=== PATIENT | male | born 1955 | race Caucasian/White ===

== ENCOUNTER 2024-11-04 12:58 | Inpatient (IN) | payer MEDICARE, SELFPAY ==
[2024-11-01 19:32] VITALS: BP 198/95
--- NOTE | 2024-11-01 19:34 | ED.GENMED ---
ED Provider Triage
<Suzanne Alfaro PA-C - Last Filed: 11/01/24 19:37>
-
Patient seen by provider in Triage?: Seen in Triage
Attestation: A medical screening examination has been initiated by a qualified medical provider. Based on the assessment performed at this time, it has been determined that an emergent medical condition may exist and the patient has been informed
that further medical evaluation and possible additional diagnostic testing may be needed.
HPI: 69yoM here for memory issues x 3 weeks. Trouble remembering how to button his shirt. Went to urgent care because son thought he had a UTI. UA had glucose in it. BP also high at urgent care. No known medical problems, hasn't seen a PCP in
several years. Denies headache, chest pain, SOB.
GENERAL: Alert , in no apparent distress
EYE: No visual abnormalities.
NECK: Trachea midline
ENT: No visible abnormalities.
LUNGS: No acute respiratory distress
NEUROLOGICAL: Alert and oriented
SKIN: Skin intact. No visible changes.
MUSCULOSKELETAL: Moving extremities normally
PSYCH: Normal and appropriate interaction.
This is a medical evaluation conducted in person to initiate diagnostic evaluation and provide initial therapeutics. Please see further documentation by the treating clinician.
Cardiac labs, TSH, UA, and CT head ordered.
History of Present Illness
<Suzanne Alfaro PA-C - Last Filed: 11/01/24 19:37>
General
Chief Complaint: Change in Mental Status
Time Seen by Provider: 11/02/24 04:34
<Wilbert Brown MD, Resident - Last Filed: 11/02/24 07:03>
General
Source: patient and family
Nursing documentation reviewed up to this point in time: agreed with
Travel History
Have you traveled to any high risk areas for coronavirus over the past 14 days?: No
Have you had any contact with someone who has COVID-19?: No
Do you have any symptoms of coronavirus? Fever > 100 degrees, chills, cough, shortness of breath, sore throat, loss of taste or smell, muscle aches, or headache?: No
History of Present Illness
History of Present Illness:
This is a 69-year-old male with past medical history of uncontrolled hypertension who came to the emergency department with his son due to changes in mental status. His son reports that patient started becoming forgetful about 3 weeks ago which has
worsened. Patient's son took him to an urgent care earlier yesterday due to concerns that his mental status change was due to UTI. While in the urgent care patient was found to have an elevated blood pressure and blood sugar and was asked to go to
the ED for further evaluation and management. He has not seen a physician in 2 years. He reports no chest pain or shortness of breath, nausea, vomiting, diarrhea, constipation, fever or chills.
Past History
<Wilbert Brown MD, Resident - Last Filed: 11/02/24 07:03>
Past History
ED Past Medical History: None
ED Past Surgical History: None
Patient has exhibited threatening behavior?: No
Social History
Tobacco: Vaping
Alcohol: Daily
Drug: Marijuana
Living: alone
Family History
Family History: Diabetes and Hypertension
Review of Systems
<Wilbert Brown MD, Resident - Last Filed: 11/02/24 07:03>
Review of Systems
All Other Systems: ROS reviewed and negative except as documented in HPI and ROS
Phy Exam
<Wilbert Brown MD, Resident - Last Filed: 11/02/24 07:03>
Physical Exam
Physical Exam:
GENERAL: Alert and oriented x 3, NAD. Afebrile
HEAD: NC/AT
OROPHARYNX: no exudate or ulcers.
EYE: pupils equal and reactive extraocular muscles
NECK: Supple, no significant adenopathy.
CARDIAC: Regular rate and rhythm without any obvious murmurs.
LUNGS: Normal breath sounds,normal-no rhonchi. Not bronchospastic.
ABDOMEN: Soft, NT, ND, no peritoneal signs.
NEUROLOGICAL: Alert and oriented x 3. No focal neurological deficit.
SKIN: Warm and dry, no rash or lesion, no discoloration, skin intact.
MUSCULOSKELETAL: Full range of motion of extremities.
LYMPHATIC:No lymph nodes on his neck or supraclavicular area.
PSYCH: Normal and appropriate interaction.
Cardiovascular Exam
Cardiovascular Exam: regular rate/rhythm, no edema, no gallop and no murmur
Pulmonary Exam
Pulmonary Exam: lungs clear, no respiratory distress and no crackles
NIH Stroke Score
Level of Consciousness: 0 - Alert
LOC questions: 0-Answers both correctly
LOC Commands: 0-Performs both correctly
Best Gaze: 0-Normal
Visual Campbell: 0=Normal, no visual loss
Facial palsy: 0=Normal, symmetrical
Motor - Right Arm: 0=No drift 10 seconds
Motor - Left Arm: 0=No drift 10 seconds
Motor - Right Le-No drift 5 seconds
Motor - Left Le-No drift 5 seconds
Limb Ataxia: 0-Absent
Sensation: 0-Normal
Best Language: 0-No aphasia
Dysarthria: 0-Normal
Extinction and Inattention: 0-No abnormality
Total Score:: 0
<Sonya Donahue DO - Last Filed: 11/02/24 08:27>
NIH Stroke Score
Total Score:: 0
Course
<Suzanne Alfaro PA-C - Last Filed: 11/01/24 19:37>
Orders/Labs/Results
Orders:
Orders
11/01/24 19:36
Electrocardiogram (*1) Urgent
Reason for Study: Hypertension, Benign
CT Head W/o Iv Contrast Urgent
Comment:
Reason For Exam: AMS
EKG- Treatment ONCE
11/01/24 19:52
Complete Blood Count/With Diff Urgent
Comprehensive Metabolic Panel Urgent
Free T4 Urgent
TSH Reflex To Free T4 Urgent
Troponin I Urgent
11/01/24 23:51
Urinalysis Reflex To Culture Urgent
Date Specimen was Collected: 11/01/24
Time Specimen was Collected: 23:45
Urine Microscopic Reflex Cult Urgent
11/02/24 05:19
Electrocardiogram (*1) Urgent
Reason for Study: Hypertension, Benign
EKG- Treatment ONCE
11/02/24 05:56
Enalapril [Vasotec] 10 mg PO NOW STA
11/02/24 07:47
Admit/Transfer Patient As Directed
Co-Sign Provider:
Level of Care: Observation services
Assign to:: Telemetry
Physician / Group: hospitalist
Diagnosis: uncontrolled hypertension, subacute stroke
Reason for Telemetry: CVA/TIA
Date to Stop Telemetry: 11/05/24
Time to Stop Telemetry: 11:00
PRN Pain Medication Management As Directed
May give lesser potent ordered pain med per pt: Yes
preference::
Protocol:: Medication orders for pain may be administered in a
manner that supports deferring to patient preference
when the pt is:
- Requesting an ordered lesser potent pain medication.
Least to most potent pain medications are defined
as: acetaminophen < NSAID < tramadol < opioids
(morphine, oxycodone, hydromorphone).
- Requesting a lesser dose of the same medication IF
ORDERED.
- Requesting a less intrusive route of administration
if both routes are prescribed by the provider (PO <
IV).
11/02/24 07:48
Code Status As Directed
Resuscitation Status: Full Code
11/02/24 08:05
Alcohol Stat
BMP [Basic Metabolic Panel] Stat
Cardiovascular Evaluation Stat
ESR [Erythrocyte Sed Rate] Stat
Hemoglobin A1c [Glycohemoglobin (HgbA1c)] Stat
LFT [Gdlqc-Bqhc-Bzjhrev] Stat
11/05/24 11:00
DC Protocol for Telemetry ONCE
Abnormal Lab Results
11/01/24 11/01/24
19:52 23:51
RBC 4.63 L 10^6/uL
(4.70-6.10)
MCH 32.6 H pg
(27.0-31.0)
Glucose 228 H mg/dl
(70-99)
TSH (Reflex) 5.12 H uIU/ml
(0.47-4.68)
Urine Ketones 1+ A
(Negative)
Urine Bacteria (Reflex) Few A
(Negative)
Urine Glucose 3+ A
(Negative)
Urine Albumin (Reflex) 2+ A
(Neg - Trace)
11/01/24 19:52
Vital Signs
Initial and Last Documented VS:
Initial Vital Signs
Temp Pulse Resp BP Pulse Ox
98.7 F 81 20 198/95 98
11/01/24 19:32 11/01/24 19:32 11/01/24 19:32 11/01/24 19:32 11/01/24 19:32
Last Documented Vital Signs
Temp Pulse Resp BP Pulse Ox
98.7 F 72 14 198/102 99
11/01/24 19:32 11/02/24 07:18 11/02/24 07:18 11/02/24 06:52 11/02/24 03:47
<Wilbert Mina Brown MD, Resident - Last Filed: 11/02/24 07:03>
Orders/Labs/Results
Orders:
Orders
11/01/24 19:36
Electrocardiogram (*1) Urgent
Reason for Study: Hypertension, Benign
CT Head W/o Iv Contrast Urgent
Comment:
Reason For Exam: AMS
EKG- Treatment ONCE
11/01/24 19:52
Complete Blood Count/With Diff Urgent
Comprehensive Metabolic Panel Urgent
Free T4 Urgent
TSH Reflex To Free T4 Urgent
Troponin I Urgent
11/01/24 23:51
Urinalysis Reflex To Culture Urgent
Date Specimen was Collected: 11/01/24
Time Specimen was Collected: 23:45
Urine Microscopic Reflex Cult Urgent
11/02/24 05:19
Electrocardiogram (*1) Urgent
Reason for Study: Hypertension, Benign
EKG- Treatment ONCE
11/02/24 05:56
Enalapril [Vasotec] 10 mg PO NOW STA
11/02/24 07:47
Admit/Transfer Patient As Directed
Co-Sign Provider:
Level of Care: Observation services
Assign to:: Telemetry
Physician / Group: hospitalist
Diagnosis: uncontrolled hypertension, subacute stroke
Reason for Telemetry: CVA/TIA
Date to Stop Telemetry: 11/05/24
Time to Stop Telemetry: 11:00
PRN Pain Medication Management As Directed
May give lesser potent ordered pain med per pt: Yes
preference::
Protocol:: Medication orders for pain may be administered in a
manner that supports deferring to patient preference
when the pt is:
- Requesting an ordered lesser potent pain medication.
Least to most potent pain medications are defined
as: acetaminophen < NSAID < tramadol < opioids
(morphine, oxycodone, hydromorphone).
- Requesting a lesser dose of the same medication IF
ORDERED.
- Requesting a less intrusive route of administration
if both routes are prescribed by the provider (PO <
IV).
11/02/24 07:48
Code Status As Directed
Resuscitation Status: Full Code
11/02/24 08:05
Alcohol Stat
BMP [Basic Metabolic Panel] Stat
Cardiovascular Evaluation Stat
ESR [Erythrocyte Sed Rate] Stat
Hemoglobin A1c [Glycohemoglobin (HgbA1c)] Stat
LFT [Djgjn-Wbbs-Zxmiaph] Stat
11/05/24 11:00
DC Protocol for Telemetry ONCE
Abnormal Lab Results
11/01/24 11/01/24
19:52 23:51
RBC 4.63 L 10^6/uL
(4.70-6.10)
MCH 32.6 H pg
(27.0-31.0)
Glucose 228 H mg/dl
(70-99)
TSH (Reflex) 5.12 H uIU/ml
(0.47-4.68)
Urine Ketones 1+ A
(Negative)
Urine Bacteria (Reflex) Few A
(Negative)
Urine Glucose 3+ A
(Negative)
Urine Albumin (Reflex) 2+ A
(Neg - Trace)
11/01/24 19:52
Vital Signs
Initial and Last Documented VS:
Initial Vital Signs
Temp Pulse Resp BP Pulse Ox
98.7 F 81 20 198/95 98
11/01/24 19:32 11/01/24 19:32 11/01/24 19:32 11/01/24 19:32 11/01/24 19:32
Last Documented Vital Signs
Temp Pulse Resp BP Pulse Ox
98.7 F 72 14 198/102 99
11/01/24 19:32 11/02/24 07:18 11/02/24 07:18 11/02/24 06:52 11/02/24 03:47
<Sonya Donahue, DO - Last Filed: 11/02/24 08:27>
Orders/Labs/Results
Orders:
Orders
11/01/24 19:36
Electrocardiogram (*1) Urgent
Reason for Study: Hypertension, Benign
CT Head W/o Iv Contrast Urgent
Comment:
Reason For Exam: AMS
EKG- Treatment ONCE
11/01/24 19:52
Complete Blood Count/With Diff Urgent
Comprehensive Metabolic Panel Urgent
Free T4 Urgent
TSH Reflex To Free T4 Urgent
Troponin I Urgent
11/01/24 23:51
Urinalysis Reflex To Culture Urgent
Date Specimen was Collected: 11/01/24
Time Specimen was Collected: 23:45
Urine Microscopic Reflex Cult Urgent
11/02/24 05:19
Electrocardiogram (*1) Urgent
Reason for Study: Hypertension, Benign
EKG- Treatment ONCE
11/02/24 05:56
Enalapril [Vasotec] 10 mg PO NOW STA
11/02/24 07:47
Admit/Transfer Patient As Directed
Co-Sign Provider:
Level of Care: Observation services
Assign to:: Telemetry
Physician / Group: hospitalist
Diagnosis: uncontrolled hypertension, subacute stroke
Reason for Telemetry: CVA/TIA
Date to Stop Telemetry: 11/05/24
Time to Stop Telemetry: 11:00
PRN Pain Medication Management As Directed
May give lesser potent ordered pain med per pt: Yes
preference::
Protocol:: Medication orders for pain may be administered in a
manner that supports deferring to patient preference
when the pt is:
- Requesting an ordered lesser potent pain medication.
Least to most potent pain medications are defined
as: acetaminophen < NSAID < tramadol < opioids
(morphine, oxycodone, hydromorphone).
- Requesting a lesser dose of the same medication IF
ORDERED.
- Requesting a less intrusive route of administration
if both routes are prescribed by the provider (PO <
IV).
11/02/24 07:48
Code Status As Directed
Resuscitation Status: Full Code
11/02/24 08:05
Alcohol Stat
BMP [Basic Metabolic Panel] Stat
Cardiovascular Evaluation Stat
ESR [Erythrocyte Sed Rate] Stat
Hemoglobin A1c [Glycohemoglobin (HgbA1c)] Stat
LFT [Wysdf-Opoa-Lbxxrhm] Stat
11/05/24 11:00
DC Protocol for Telemetry ONCE
Abnormal Lab Results
11/01/24 11/01/24
19:52 23:51
RBC 4.63 L 10^6/uL
(4.70-6.10)
MCH 32.6 H pg
(27.0-31.0)
Glucose 228 H mg/dl
(70-99)
TSH (Reflex) 5.12 H uIU/ml
(0.47-4.68)
Urine Ketones 1+ A
(Negative)
Urine Bacteria (Reflex) Few A
(Negative)
Urine Glucose 3+ A
(Negative)
Urine Albumin (Reflex) 2+ A
(Neg - Trace)
11/01/24 19:52
Vital Signs
Initial and Last Documented VS:
Initial Vital Signs
Temp Pulse Resp BP Pulse Ox
98.7 F 81 20 198/95 98
11/01/24 19:32 11/01/24 19:32 11/01/24 19:32 11/01/24 19:32 11/01/24 19:32
Last Documented Vital Signs
Temp Pulse Resp BP Pulse Ox
98.7 F 72 14 198/102 99
11/01/24 19:32 11/02/24 07:18 11/02/24 07:18 11/02/24 06:52 11/02/24 03:47
<Wilbert Bronw MD, Resident - Last Filed: 11/02/24 07:03>
MDM/Problems Addressed
MDM/Problems Addressed:
69-year-old male who has not been to the doctor for in 2 years coming into the emergency department today with memory loss, high blood pressure and impaired glucose tolerance dictated at an urgent care. A noncontrast CT done in the ED today
remarkable for inferolateral right parietal lobe wedge-shaped area of density suspicious for subacute infarcts and a small white matter decreased density in right frontal suspicious for leukomalacia/small vessel ischemic changes. His blood glucose
was mildly elevated at 228, TSH 5.12 with normal T4 (1.26). Urinalysis was also positive for ketones, glucose and albumin.
Differential diagnosis include acute metabolic disorders with poorly controlled diabetes mellitus and resultant subacute CVA, acute psychiatric disorders, acute [employer] infection.
Chronic conditions affecting care: HTN
<Wilbert Brown MD, Resident - Last Filed: 11/02/24 07:03>
*Critical Care Note
Total Time (30-74mins, 75-104mins- exclusive of procedures): Not Applicable
<Wilbert Brown MD, Resident - Last Filed: 11/02/24 07:03>
Update Note
Update Note:
CT scan was positive for subacute stroke right parietal lobe. There is also concerns for uncontrolled hypertension, undiagnosed diabetes and most likely underlying hyperlipidemia and CAD making patient susceptible to recurrent stroke and
significant mobility and mortality risk.
Given his recent confusion, hypertension, stroke, will admit patient to hospitalist service for further evaluation and management.
ED Attending Note
<Suzanne Alfaro PA-C - Last Filed: 11/01/24 19:37>
-
Portions of this chart may have been created with voice recognition software.� Occasional wrong word or��sound alike� substitutions may have occurred due to the inherent limitations of voice recognition software.
<Sonya Donahue, DO - Last Filed: 11/02/24 08:27>
ED Attending Note
Patient seen and examined by attending physician: Yes
I performed a history and physical exam of patient and discussed management with resident, I reviewed resident's note and agree with documented findings and plan of care.: Yes
ED Attending Note:
This is a 69-year-old gentleman who resides at home with his son. He is brought to the ED by his son with concern for several month history of memory issues, forgetfulness. He has had no weakness nor numbness, no headache, no chest pain or
shortness of breath. No falls.
Initially presented to urgent care and was noted to have significantly elevated blood pressure and was sent to the ER for further evaluation.
Patient admits to neglecting his own health care, has not been seen by PCP in quite some time, at least more than 2 years.
He takes no medicines on a daily basis.
He smokes marijuana. Denies other drug use.
He drinks wine perhaps 3 to 4 glasses, 3-4 times per week.
69-year-old gentleman appears his stated age, bright and alert, pleasant, appears in no acute distress. Easily communicative. Oriented x 3.
Heart is regular rate and rhythm.
Lungs are clear to auscultation.
Neuro: Awake alert and oriented x 3. No focal neurodeficits. Motor strength is 5/5 bilaterally. Gross sensation is intact.
Noted to be significantly hypertensive, 198/95, 180/90 upon recheck.
Labs are remarkable for elevated glucose of 228 without acidosis.
TSH is minimally elevated at 5.12 with normal free T4.
Troponin is negative.
CAT scan shows subacute stroke right parietal lobe.
I highly suspect poorly controlled hypertension, diabetes as significant risk factors for ASCVD. Must also consider hyperlipidemia, carotid artery disease.
Patient is at significant risk for recurrent stroke, severe debility.
Recommend acute hospitalization for treatment of accelerated hypertension, diabetes and subacute stroke.
Will check EKG and we will plan to initiate antihypertensive.
Will start low-dose aspirin.
Discharge Plan
Departure
Patient Disposition: Admit
Date of Disposition: 11/02/24
Time of Disposition: 06:57
Admit to: Telemetry
Admit to doctor: Amrit Escoto
Presentation/result/management discussed w/ accepting MD/DO: Hospitalist
Patient with high blood pressure during this ER visit?: Yes
Condition: Serious
Covid-19: Not Applicable
Discharge Problem:
Essential hypertension, Glucose intolerance (impaired glucose tolerance), Acute confusion
Interventions
Interventions:
*Risk Screen - Suicide Last Done: 11/01/24 19:32
*General Assessment Last Done: 11/02/24 00:00
*Neglect/Abuse Screening Last Done: 11/01/24 19:32
ED- Fall Risk Assessment Last Done: 11/01/24 19:32
*ED COVID-19 Vaccine History Last Done: 11/01/24 19:32
ED- Cardiac Assessment Last Done: 11/02/24 03:20
ED- Neurological Assessment Last Done: 11/02/24 03:20
ED- Pulmonary Assessment Last Done: 11/02/24 03:20
ED Swallowing Screen Last Done: 11/02/24 03:20
[2024-11-01 20:01] LABS: % Basophils 0.7 % (0-2); % Eosinophils 2.7 % (0-6); % Immature Granulocytes 0.3 % (0-0.5); % Lymphocytes 31.8 % (20.5-51.1); % Neutrophils 56.5 % (42.2-75.2); Absolute Eosinophils 0.2 10^3/uL (0-0.7); Absolute Lymphocytes 1.9 10^3/uL (1.2-3.4); Absolute Monocytes 0.5 10^3/uL (0.1-0.6); Absolute Neutrophils 3.3 10^3/uL (1.4-6.5); Hematocrit 41.7 % (39.0-52.0); Hemoglobin 15.1 g/dL (13.0-18.0); Mean Corp Hgb Conc. 36.2 g/dL (33.0-37.0); Mean Corpuscular Hgb 32.6 pg (27.0-31.0); Mean Corpuscular Volume 90.1 fL (80.0-94.0); Mean Platelet Volume 9.4 fL (7.4-10.4); Nucleated Red Blood Cells % 0 % (-); Platelet Count 179 10^3/uL (130-400); Red Blood Cell Count 4.63 10^6/uL (4.70-6.10); Red Cell Dist. Width 11.8 % (11.5-14.5); White Blood Cell Count 5.8 10^3/uL (4.8-10.8)
[2024-11-01 20:19] LABS: ALT (SGPT) 37 U/L (0-50); AST (SGOT) 31 U/L (17-59); Albumin 4.9 g/dl (3.5-5.0); Alkaline Phosphatase 56 U/L (38-126); Blood Urea Nitrogen 16 mg/dl (9-20); Calcium 9.1 mg/dl (8.4-10.2); Carbon Dioxide 27 mmol/L (22-30); Chloride 98 mmol/L (98-107); Glucose 228 mg/dl (70-99); Potassium 3.9 mmol/L (3.5-5.1); Sodium 135 mmol/L (135-145); Total Bilirubin 0.9 mg/dl (0.2-1.3); Total Protein 7.9 g/dl (6.3-8.2); eGFR > 60.00
[2024-11-01 20:24] LABS: Troponin I < 0.012 ng/ml
[2024-11-01 20:49] LABS: TSH Reflex To Free T4 5.12 uIU/ml (0.47-4.68)
[2024-11-01 21:18] LABS: Free T4 1.26 ng/dl (0.78-2.19)
[2024-11-02] VITALS (15 sets, daily range): BP systolic 131–198; BP diastolic 74–117; BMI 30.9
[2024-11-02 00:13] LABS: Urine Albumin 2+ (Neg - Trace); Urine Bilirubin Negative (Negative); Urine Character Clear (Clear); Urine Color Yellow; Urine Glucose 3+ (Negative); Urine Ketone 1+ (Negative); Urine Leukocyte Negative (Negative); Urine Nitrite Negative (Negative); Urine Occult Blood Negative (Negative); Urine Urobilinogen 1+ (Neg - 1+)
[2024-11-02 01:16] LABS: Urine Mucus Moderate
[2024-11-02 01:19] LABS: Urine Bacteria Few (Negative); Urine Calcium Oxalate Crystals Seen; Urine Red Blood Cell 0-2 /HPF (0-2); Urine White Cell 0-2 /HPF (0-5)
[2024-11-02] MEDS: VASOTEC 10 MG PO (06:10)
--- NOTE | 2024-11-02 07:34 | HPS.HSE ---
Family Physician
-
Family Physician: NOT KNOW UNKNOWN - PT DOES
Chief Complaint
-
Subacute memory loss and confusion, uncontrolled blood pressure
History of Present Illness
This is a 69-year-old who has no known significant past medical history due to loss of follow-up presents to the emergency department after being seen at urgent care for uncontrolled hypertension and memory difficulties.
According to patient as well as family appear to have been in usual state of health up until about 3 weeks ago. At that time they noticed that he had increased forgetfulness. He was unable to remember where he put his keys or wallet. He he was
unable to remember how to put on his shirt and pants. He gradually improved since then but never back to baseline. The family saw him afterwards and sent him to urgent care. At urgent care and was noted to be severely hypertensive. He also
appeared to have some abnormality in the urine they were concern for urinary tract infection at that time. Due to the uncontrolled blood pressure was sent to the emergency department for evaluation.
He denies any focal weakness. He denies any difficulty with speech. He denies any facial asymmetry. He denies any ambulatory difficulties. He denies any vision changes.
Patient denies ever being on any medications including antihypertensives. He denies any known history of diabetes. Denies family history of diabetes. He endorsed drinking about 4 glasses of wine 4-5 times a week. He denies tobacco use. He
endorses marijuana use. He denies any NSAID use.
On arrival in the emergency department he was hypertensive to 190 systolic, pulse was in the 60s and he was satting 98% on room air. ECG showed some normal sinus rhythm at 62. Troponin was negative. CBC was unremarkable. Electrolytes BUN and
creatinine were normal. Glucose was elevated at 228. CT of the head shows wedge-shaped infarcts in the inferior lateral right parietal region consistent with a subacute infarct. There was some small vessel changes as well. UA with 2+ protein but
otherwise unremarkable
Medical History
Past Medical History
Past Medical History: Reports None and HTN
Past Surgical History: Reports None
Social History
Tobacco: Non-smoker
Alcohol: Daily
Drug: Marijuana
Personal: Single
Living: Alone
Employment: Retired
Family History
Family History: Not pertinent
Allergies / Home Medications
Allergies reflects when Allergies were last updated in [facility].
Home Medications with original date entered in [facility]
Allergy/Medication List:
Allergies
Allergy/AdvReac Type Severity Reaction Status Date / Time
No Known Allergies Allergy Verified 11/01/24 19:40
NO MEDICATIONS
Review of Systems
-
History Source: Patient and Family
Constitutional: Reports No Symptoms
EENT: Reports No Symptoms
Respiratory: Reports No Symptoms
Cardiac: Reports No Symptoms
Abdomen/GI: Reports No Symptoms
: Reports No Symptoms
Musculoskeletal: Reports No Symptoms
Skin: Reports No Symptoms
Neurological: Reports Other (memory loss)
Endocrine: Reports No Symptoms
Hematologic/Lymphatic: Reports No Symptoms
Psych: Reports No Symptoms
Physical Exam
Vital Signs
Vital Signs
Temp Pulse Resp BP Pulse Ox
98.7 F 72 14 198/102 99
11/01/24 19:32 11/02/24 07:18 11/02/24 07:18 11/02/24 06:52 11/02/24 03:47
Physical Exam
General: Well Developed, No Apparent Distress, Comfortable and Conversant
HEENT: NormoCephalic, Anicteric, Moist mucous membranes and Atraumatic
Respiratory: Clear
Cardiac: S1/S2 and Regular Rhythm
Breast: Deferred by me
GI: Soft, Non Tender, Non Distended and Normal Bowel Sounds
Rectal: Deferred by Provider
Genito-urinary: Deferred by me
Musculoskeletal: No Clubbing, No Cyanosis and No Edema
Skin: Warm
Neuro: AO x 3, Nonfocal/grossly intact and Cranial Nerves Intact; No Slurred Speech or Facial Droop
Hematologic/Lymphatic: No Lymphadenopathy
Psych: Calm
Laboratory Results
-
11/01/24 19:52
11/01/24 19:
Laboratory Results
Total Bilirubin 0.9 mg/dl (0.2-1.3) 11/01/24 19:52
AST 31 U/L (17-59) 11/01/24 19:52
ALT 37 U/L (0-50) 11/01/24 19:52
Alkaline Phosphatase 56 U/L (38-126) 11/01/24 19:52
Troponin I < 0.012 ng/ml 11/01/24 19:52
Data Reviewed
-
CT Scan: Report Reviewed by me
Medical Tests (Nuc Med, Echo, EKG etc): Image Personally Visualized and interpreted
Lab Data: Labs Reviewed by me
Old Records: Reviewed
Impression/Plan
-
IMPRESSION:
69 y.o with unknown history of uncontrolled hypertension presenting with episode of memory loss that occurred about 3 weeks ago and found to have a R parietal subacute ischemic infarct.
PLAN:
1. CVA - Subacute CVA, no known past medical history.
- admit to telemetry observe x 24 hours for rhythm
- no indication for neurochecks at this time
- cholesterol diet as tolerated
- mri brain, mra head and neck
- echo
- check lipid panel, a1c, lfts, esr. TSH WNL.
- start aspirin 81 daily, statin
- plavix per neurology consult
- BP control as below
2. HTN
- no prior antihypertensive, good response to enalapril
- continue enalapril 10mg daily and titrate for goal SBP < 160, DBP < 90
3. DM - ? dm 2. Denies polyuria or polydipsia
- a1c as above
4. ETOH - drinks 4 glasses of wine 4 times per week. Additionally has liquor occasionally. Has stopped without issues in the past. Last drink 48 hours ago.
- check etoh
- check lfts
- no indication for acute withdrawal protocol but will monitor on telemetry
DVT PPX - SCDs
Code status - Full code
[2024-11-02 08:29] LABS: Erythrocyte Sed Rate 11 mm/hour (0-20)
[2024-11-02 08:30] LABS: ALT (SGPT) 39 U/L (0-50); AST (SGOT) 29 U/L (17-59); Albumin 5.2 g/dl (3.5-5.0); Alkaline Phosphatase 60 U/L (38-126); Blood Urea Nitrogen 19 mg/dl (9-20); Calcium 9.2 mg/dl (8.4-10.2); Carbon Dioxide 28 mmol/L (22-30); Chloride 99 mmol/L (98-107); Direct Bilirubin 0.5 mg/dl (0.0-0.4); Glucose 235 mg/dl (70-99); HDL Cholesterol 38 mg/dl; LDL Cholesterol, Calculated 112 mg/dl; Potassium 3.8 mmol/L (3.5-5.1); Sodium 138 mmol/L (135-145); Total Cholesterol 208 mg/dl (50-199); Total Protein 8.3 g/dl (6.3-8.2); Triglyceride 293 mg/dl (10-149); Very Low Density Lipoprotein 58 mg/dl (0-30); eGFR > 60.00
--- NOTE | 2024-11-02 09:05 | CON.NEURO ---
Consultation
Order
Date of Consultation: 11/02/24
Requesting Provider: Tim Tinsley MD
Reason for Consult: Memory loss subacute CVA
Neurology Consultation Note.
HPI: This is a 69-year-old man who presented to [facility] on 11/01/2024 with encephalopathy.
The patient endorses concerns of memory loss. His son brought him to urgent care due to these concerns, where he was found to be diabetic and hypertensive. The patient acknowledges being forgetful, describing it as 'very frustrating.' He reports
misplacing personal items such as his phone, wallet, and eyeglasses for more than a week.
He has no established primary care physician but reports his son is working on arranging one. The patient admits to recreational marijuana use, which he started approximately 50 years ago. He quit smoking cigarettes about 20 years ago. He
acknowledges alcohol consumption, preferring red wine currently, with a history of hard liquor use in the past.
ER VS: 198/95, 81, afebrile
EKG: NSR, QTc Int : 444 ms
PDMP:none
Labs: Glucose�228, normal sodium, creatinine�1.3, total protein�8.3, LDL�112, normal free T4, UA�positive for glucose, albumin, ketones. Negative for leukocyte esterase, nitrates EtOH�not detected
CT head wo contrast�subacute right MCA infarct
CTA�no hemodynamically significant stenosis with dissection
PMH: No prior medical care
PSH:oral surgery
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
All:NKDA
ROS: Constitutional: Negative. Negative for chills, fever and unexpected weight change.
HENT: Negative for ear pain, hearing loss, tinnitus and trouble swallowing.
Eyes: Negative. Negative for photophobia, pain and visual disturbance.
Respiratory: Negative for cough, choking and shortness of breath.
Cardiovascular: Negative for chest pain, palpitations and leg swelling.
Gastrointestinal: Negative for abdominal pain and vomiting.
Endocrine: Negative. Negative for cold intolerance.
Genitourinary: Positive for urinary urgency
Musculoskeletal: Negative for back pain, gait problem, neck pain and neck stiffness.
Skin: Negative for rash.
Allergic/Immunologic: Negative. Negative for immunocompromised state.
Neurological: Positive for change in memory, imbalance
Psychiatric/Behavioral: Negative for behavioral problems, confusion and hallucinations.
General: Well developed. In no acute distress.
Cardio: Regular rate and rhythm without murmur. Extremities are without cyanosis or edema.
Neuro:
Mental Status: Alert, oriented to person, place, and date. Normal attention and recall. Good fund of knowledge. Follows complex requests across the midline. Comprehension, naming, and repetition intact. Immediate and delayed recall 3/3.
Cranial Nerves: Pupils are equally round and reactive to light. EOMs full. Visual barbosa full to confrontation. No ptosis. No nystagmus. V1-V3 intact to light touch and pinprick bilaterally, symmetric. Face symmetric. Normal hearing AU. The
palate elevated well. SCMs and traps 5/5. Tongue midline. No dysarthria.
Motor: Normal bulk and tone. No pronator or arm drift. Strength 5/5 throughout. No clonus.
Reflexes: 2+ throughout the upper extremities and knees. 2/2 in AJs. Plantar responses flexor bilaterally.
Sensory: Vibration at the toes and reduced at the ankles
Coordination: No dysmetria or tremor.
Gait: deferred
Assessment and Plan:
I. Subacute right MCA territory infarct. Likely etiology�embolic
II. Hypertensive emergency
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
IV. Cannabis, EtOH addiction
-Continue Telemetry monitoring
-Cautious lowering of BP by approximately 15 % during the first 24 hours is SBP >220 mmHg or diastolic blood pressure >120 mmHg
-Start DAPT for 21 days then continue aspirin 81 mg once a day indefinitely
-TTE /LIAM if TTE is unremarkable
-Polyneuropathy blood work
-Continue thiamine
-Lipitor 40 mg QHS.
-IV thiamine
-PT.
-DVT prophylaxis.
I personally reviewed all radiology and labs along with past medical records pertinent to current medical problems. Total time spent in patient care is 60 minutes.
Thank you for allowing us to participate in the care of this patient. We will continue to follow. Please do not hesitate to contact us with any questions or concerns.
Subjective/Objective
Subjective Data
Date of Service: November 02, 2024
Objective Data
Vital Signs
Temp Pulse Resp BP Pulse Ox
37.1 C 72 14 198/102 99
11/01/24 19:32 11/02/24 07:18 11/02/24 07:18 11/02/24 06:52 11/02/24 03:47
Lab Results
11/01/24 19:52
11/02/24 08:05
Sodium 138 mmol/L (135-145) 11/02/24 08:05
Potassium 3.8 mmol/L (3.5-5.1) 11/02/24 08:05
BUN 19 mg/dl (9-20) 11/02/24 08:05
Glucose 235 mg/dl (70-99) H 11/02/24 08:05
Calcium 9.2 mg/dl (8.4-10.2) 11/02/24 08:05
LDL Cholesterol, Calc 112 mg/dl 11/02/24 08:05
Patient Allergies
No Known Allergies Allergy (Verified 11/01/24 19:40)
Vital Signs and Labs
-
Vital Signs and Labs:
Vital Signs
Temp Pulse Resp BP Pulse Ox
37.1 C 84 17 174/74 80
11/01/24 19:32 11/02/24 10:01 11/02/24 10:01 11/02/24 11:06 11/02/24 11:06
Lab Results
11/01/24 19:52
11/02/24 08:05
Sodium 138 mmol/L (135-145) 11/02/24 08:05
Potassium 3.8 mmol/L (3.5-5.1) 11/02/24 08:05
BUN 19 mg/dl (9-20) 11/02/24 08:05
Glucose 235 mg/dl (70-99) H 11/02/24 08:05
Calcium 9.2 mg/dl (8.4-10.2) 11/02/24 08:05
LDL Cholesterol, Calc 112 mg/dl 11/02/24 08:05
Vitamin B12 630 pg/ml (239-931) 11/02/24 08:05
Ur Buprenorphine Cancelled 11/02/24 10:54
Medications
-
Medications:
Generic Name Dose Route Start Last Admin
Trade Name Freq PRN Reason Stop Dose Admin
Aspirin 81 mg 11/02/24 10:00 11/02/24 11:05
Aspirin 81 Mg Chewable Tablet PO 11/30/24 09:59 81 mg
DAILY BENITO Administration
Home Medications
-
Home Medications
acetaminophen 500 mg tablet 1,500 mg PO DAILYPRN PRN mild pain/migraine 11/02/24
[2024-11-02] MEDS: LOW STRENGTH ASPIRIN 81 MG PO ×2 (11:05→16:58)
[2024-11-02 11:10] LABS: Vitamin B12 630 pg/ml (239-931)
[2024-11-02] MEDS: PLAVIX 75 MG PO (15:15)
--- NOTE | 2024-11-02 15:34 | W.PN.UPDATE ---
Update Note
Progress Note Update
Hemoglobin A1c is 10, will need health educator on board
Insulin titration
Start statin
Await imaging
Neuroconsultation
Echo
DAPT
BP control
[2024-11-02] MEDS: LIPITOR 40 MG PO (16:58)
--- NOTE | 2024-11-02 16:59 | PTCARENOTE ---
Pt arrived to 2S in bed. Full assessment completed. Neuro assessment WDL. NIH score 1. No issues swallowing. Bed alarm applied for safety. Pt instructed to ring for assistance getting OOB, verbalized understanding. Bed locked and in the lowest
position, safety maintained. Oriented to room and call berny, son at bedside.
[2024-11-02 17:20] LABS: Glucose - Point of Care 190 mg/dl (70-99)
[2024-11-02 17:37] LABS: Folate 8.2 ng/ml (2.76-20)
[2024-11-02] MEDS: NOVOLOG FLEXPEN-LOW RESISTANCE 1 UNITS SC (18:00)
--- NOTE | 2024-11-02 18:00 | PTCARENOTE ---
stroke packet provided to pt per protocol
[2024-11-02 21:18] LABS: Glucose - Point of Care 170 mg/dl (70-99)
[2024-11-03] VITALS (8 sets, daily range): BP systolic 144–176; BP diastolic 77–96
[2024-11-03 08:12] LABS: Glucose - Point of Care 206 mg/dl (70-99)
--- NOTE | 2024-11-03 08:42 | W.PN.NEURO.1 ---
Today's Communication / Plan
-
.
Subjective/Objective
Subjective Data
Date of Service: November 03, 2024
Neurology neurology follow-up note.
Mr. Charlton reports no complaints. He had uneventful night. No reports of headaches change in vision or strength. Continues to be hypertensive up to 176/85 in the morning.
LDL�112, HbA1C 10.0, vitamin B12�632,
CTA�no hemodynamically significant stenosis or dissection.
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
PSH:oral surgery
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
All:NKDA
ROS: Constitutional: Negative. Negative for chills, fever and unexpected weight change.
HENT: Negative for ear pain, hearing loss, tinnitus and trouble swallowing.
Eyes: Negative. Negative for photophobia, pain and visual disturbance.
Respiratory: Negative for cough, choking and shortness of breath.
Cardiovascular: Positive for lower leg edema
Gastrointestinal: Negative for abdominal pain and vomiting.
Endocrine: Negative. Negative for cold intolerance.
Genitourinary: Positive for urinary urgency
Musculoskeletal: Negative for back pain, gait problem, neck pain and neck stiffness.
Skin: Negative for rash.
Allergic/Immunologic: Negative. Negative for immunocompromised state.
Neurological: Positive for change in memory, imbalance
Psychiatric/Behavioral: Negative for behavioral problems, confusion and hallucinations.
General: Well developed. In no acute distress.
Cardio: Regular rate and rhythm without murmur. Extremities are without cyanosis or edema.
Neuro:
Mental Status: Alert, oriented to person, place, and date. Normal attention and recall. Good fund of knowledge. Follows complex requests across the midline. Comprehension, naming, and repetition intact.
Cranial Nerves: Pupils are equally round and reactive to light. EOMs full. L>R visual fissure. Visual barbosa full to confrontation. No ptosis. No nystagmus. V1-V3 intact to light touch and pinprick bilaterally, symmetric. Face symmetric.
Full eye closure strength. Normal hearing AU. The palate elevated well. SCMs and traps 5/5. Tongue midline. Mild edentulous dysarthria
Motor: Normal bulk and tone. No pronator or arm drift. Strength 5/5 throughout. No clonus.
Sensory: absent vibration at the toes and reduced at the ankles
Coordination: No dysmetria or tremor.
Gait: deferred
Assessment and Plan:
I. 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 Likely etiology�embolic
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
III. History of recurrent Jones's palsy
IV. Cannabis, EtOH addiction
-Continue Telemetry monitoring
Strict glycemic, lipid and blood pressure control
-Continue DAPT for 21 days then continue aspirin 81 mg once a day indefinitely
-TTE /LIAM if TTE is unremarkable
-Continue thiamine
-Lipitor 40 mg QHS.
-Follow-up thiamine level, SPEP, GUNJAN
-PT.
-DVT prophylaxis.
I personally reviewed all radiology and labs along with past medical records pertinent to current medical problems. Total time spent in patient care is 40 minutes.
Thank you for allowing us to participate in the care of this patient. Please do not hesitate to contact us with any questions or concerns.
Objective Data
Vital Signs
Temp Pulse Resp BP Pulse Ox
36.3 C 59 16 176/85 98
11/03/24 07:20 11/03/24 07:20 11/03/24 07:20 11/03/24 07:20 11/03/24 07:20
Lab Results
11/01/24 19:52
11/02/24 08:05
Sodium 138 mmol/L (135-145) 11/02/24 08:05
Potassium 3.8 mmol/L (3.5-5.1) 11/02/24 08:05
BUN 19 mg/dl (9-20) 11/02/24 08:05
Glucose 235 mg/dl (70-99) H 11/02/24 08:05
Calcium 9.2 mg/dl (8.4-10.2) 11/02/24 08:05
LDL Cholesterol, Calc 112 mg/dl 11/02/24 08:05
Vitamin B12 Cancelled 11/02/24 15:52
Ur Buprenorphine Cancelled 11/02/24 10:54
Patient Allergies
No Known Allergies Allergy (Verified 11/01/24 19:40)
Vital Signs and Labs
-
Vital Signs and Labs:
Vital Signs
Temp Pulse Resp BP Pulse Ox
36.3 C 59 16 176/85 98
11/03/24 07:20 11/03/24 07:20 11/03/24 07:20 11/03/24 07:20 11/03/24 07:20
Lab Results
11/01/24 19:52
11/02/24 08:05
Sodium 138 mmol/L (135-145) 11/02/24 08:05
Potassium 3.8 mmol/L (3.5-5.1) 11/02/24 08:05
BUN 19 mg/dl (9-20) 11/02/24 08:05
Glucose 235 mg/dl (70-99) H 11/02/24 08:05
Calcium 9.2 mg/dl (8.4-10.2) 11/02/24 08:05
LDL Cholesterol, Calc 112 mg/dl 11/02/24 08:05
Vitamin B12 Cancelled 11/02/24 15:52
Ur Buprenorphine Cancelled 11/02/24 10:54
Medications
-
Medications:
Generic Name Dose Route Start Last Admin
Trade Name Freq PRN Reason Stop Dose Admin
Acetaminophen 650 mg 11/02/24 15:40
Acetaminophen 650 Mg Rectal Suppository RECTAL 11/30/24 15:39
Q4HPRN PRN
HANCOCK, mild pain, or temp >100.4F
Acetaminophen 650 mg 11/02/24 15:40
Acetaminophen 325 Mg Tablet PO 11/30/24 15:39
Q4HPRN PRN
HANCOCK, mild pain, or temp >100.4F
Aspirin 81 mg 11/02/24 10:00 11/02/24 11:05
Aspirin 81 Mg Chewable Tablet PO 11/30/24 09:59 81 mg
DAILY BENITO Administration
Atorvastatin Calcium 40 mg 11/02/24 18:00 11/02/24 16:58
Atorvastatin (Lipitor) 40 Mg Tablet PO 11/30/24 17:59 40 mg
QPM BENITO Administration
Clopidogrel Bisulfate 75 mg 11/02/24 14:00 11/02/24 15:15
Clopidogrel 75 Mg Tablet PO 11/22/24 08:01 75 mg
DAILY BENITO Administration
Dextrose 12.5 grams 11/02/24 16:00
Dextrose 50% (0.5 Grams/Ml) 50 Ml Syringe IV 11/30/24 15:59
[id number] PRN
hypoglycemia
Protocol
Enalapril Maleate 10 mg 11/03/24 08:00
Enalapril 10 Mg Tablet PO 12/01/24 07:59
DAILY BENITO
Glucagon 1 mg 11/02/24 16:00
Glucagon 1 Mg Vial IM 11/30/24 15:59
PRN PRN
hypoglycemia - no IV access
Protocol
Hydralazine HCl 5 mg 11/02/24 15:40
Hydralazine 20 Mg/Ml Vial IV 11/30/24 15:39
Q6HPRN PRN
for SBP > 180, DBP > 110
Insulin Aspart 0 units 11/02/24 16:30 11/02/24 18:00
Insulin Aspart Low Resistance 300 Units/3 Ml Pen.Injctr SC 11/30/24 16:29 1 units
AC BENITO Administration
Protocol
Ondansetron HCl 4 mg 11/02/24 15:40
Ondansetron 4 Mg/2 Ml Vial IV 11/30/24 15:39
Q6HPRN PRN
NAUSEA/VOMITING
Sodium Chloride 0 flush 11/02/24 16:00
Sodium Chloride 0.9% (Flush) Syringe IV 11/30/24 15:59
PER PROTOCOL BENITO
Home Medications
-
Home Medications
acetaminophen 500 mg tablet 1,500 mg PO DAILYPRN PRN mild pain/migraine 11/02/24
[2024-11-03] MEDS: VASOTEC 10 MG PO ×2 (08:53→15:12)
[2024-11-03] MEDS: NOVOLOG FLEXPEN-LOW RESISTANCE 2 UNITS SC (08:53)
[2024-11-03] MEDS: LOW STRENGTH ASPIRIN 81 MG PO (08:54)
[2024-11-03] MEDS: PLAVIX 75 MG PO (08:54)
[2024-11-03 11:46] LABS: Glucose - Point of Care 297 mg/dl (70-99)
--- NOTE | 2024-11-03 12:24 | W.PN.HOSP.TC ---
Today's Communication/Plan
-
sapt
bp control
TTE, and possible LIAM
Assessment / Plan
Assessment / Plan
Physical Exam
General: Well Developed, No Apparent Distress, Comfortable and Conversant
HEENT: NormoCephalic, Anicteric, Moist mucous membranes and Atraumatic
Respiratory: Clear
Cardiac: S1/S2 and Regular Rhythm
Breast: Deferred by me
GI: Soft, Non Tender, Non Distended and Normal Bowel Sounds
Rectal: Deferred by Provider
Genito-urinary: Deferred by me
Musculoskeletal: No Clubbing, No Cyanosis and No Edema
Skin: Warm
Neuro: AO x 3, Nonfocal/grossly intact and Cranial Nerves Intact; No Slurred Speech or Facial Droop
Hematologic/Lymphatic: No Lymphadenopathy
Psych: Calm
#Subacute right /MANAGER POOL MCA territory infarct.
-likely embolic
-Several prominent scattered nonhemorrhagic acute/subacute right frontoparietal region infarcts.
-cont tele
-TTE, and LIAM if TTE unremarkable
-MRA
-Cont DAPT x 21 days, then asa alone
-thiamine
-Statin
-F/u Thiamine, SPEP, GUNJAN
-PT/OT
2. Essential HTN
- no prior antihypertensive, good response to enalapril - titirate up
-titrate up enalapril 20mg - titrate as needed
3. DM - ? dm 2. Denies polyuria or polydipsia
- a1c as above
4. ETOH - drinks 4 glasses of wine 4 times per week. Additionally has liquor occasionally. Has stopped without issues in the past. Last drink 48 hours ago.
- check etoh
- check lfts
- no indication for acute withdrawal protocol but will monitor on telemetry
5. Diabetes
-a1c - 10
- start lantus 5 and monitor
DVT PPX - hsq
Code status - Full code
Anticipated Discharge: 24 - 48 hours
Subjective/Interval History
-
Date of Service: November 03, 2024
no acute events
Objective Data
-
Vital Signs:
Vital Signs
Temp Pulse Resp BP Pulse Ox
97.4 F 61 16 159/77 97
11/03/24 11:45 11/03/24 11:45 11/03/24 11:45 11/03/24 11:45 11/03/24 11:45
I&O
11/02/24 11/03/24 11/04/24
06:59 06:59 06:59
Intake Total 480 / 480
Output Total 750 / 750
Balance -270 / -270
Review of Systems
-
History Source: Patient
All other systems: Not reviewed unless documented
Data Reviewed
-
CT Scan: Report Reviewed by me
MRI: Report Reviewed by me
Labs: Labs Reviewed by me
[2024-11-03] MEDS: NOVOLOG FLEXPEN-LOW RESISTANCE 3 UNITS SC (12:37)
--- NOTE | 2024-11-03 16:12 | CM ---
Met with pt at bedside
Pt reports he lives alone in an apartment; 20 steps to enter, 2 steps to bedroom
Independent at baseline, retired, drives
DME - crutches
SNF/HH - no past hx
Has ride at discharge
PCP - does not have PCP
Pharm - [facility]
Given KLEIN
Spoke with son Tim. Updated of current status. Will follow up with family after PT/OT recs regarding dispo
Per son, pt to d/c home with family prior to returning to home
Plan - anticipate home no needs
[2024-11-03 16:41] LABS: Glucose - Point of Care 178 mg/dl (70-99)
[2024-11-03] MEDS: LIPITOR 40 MG PO (17:12)
[2024-11-03] MEDS: NOVOLOG FLEXPEN-LOW RESISTANCE 1 UNITS SC (17:12)
[2024-11-03] MEDS: HEPARIN 5000 UNITS SC (20:55)
[2024-11-03 21:40] LABS: Glucose - Point of Care 256 mg/dl (70-99)
[2024-11-03] MEDS: LANTUS 0.05 UNITS SC (21:55)
[2024-11-04] VITALS (8 sets, daily range): BP systolic 96–147; BP diastolic 67–86; PULSE 76–81; O2SAT 94–99
[2024-11-04 05:35] LABS: Hematocrit 43.5 % (39.0-52.0); Hemoglobin 15.7 g/dL (13.0-18.0); Mean Corp Hgb Conc. 36.1 g/dL (33.0-37.0); Mean Corpuscular Hgb 32.9 pg (27.0-31.0); Mean Corpuscular Volume 91.2 fL (80.0-94.0); Mean Platelet Volume 9.9 fL (7.4-10.4); Platelet Count 166 10^3/uL (130-400); Red Blood Cell Count 4.77 10^6/uL (4.70-6.10); Red Cell Dist. Width 11.6 % (11.5-14.5); White Blood Cell Count 5.2 10^3/uL (4.8-10.8)
[2024-11-04 05:54] LABS: Blood Urea Nitrogen 19 mg/dl (9-20); Calcium 9.4 mg/dl (8.4-10.2); Carbon Dioxide 25 mmol/L (22-30); Chloride 101 mmol/L (98-107); Estimated Creatinine Clearance 93 ml/min; Glucose 164 mg/dl (70-99); Potassium 4.1 mmol/L (3.5-5.1); Sodium 139 mmol/L (135-145); eGFR > 60.00
[2024-11-04 07:43] LABS: Glucose - Point of Care 170 mg/dl (70-99)
[2024-11-04] MEDS: NOVOLOG FLEXPEN-LOW RESISTANCE 1 UNITS SC ×2 (07:57→17:14)
[2024-11-04] MEDS: VASOTEC 20 MG PO (07:58)
[2024-11-04] MEDS: LOW STRENGTH ASPIRIN 81 MG PO (07:58)
[2024-11-04] MEDS: PLAVIX 75 MG PO (07:58)
[2024-11-04] MEDS: HEPARIN 5000 UNITS SC ×2 (08:03→21:24)
--- NOTE | 2024-11-04 10:24 | CON.CAR ---
Addendum entered and electronically signed by Lilo Garcia DO 11/04/24 21:37:
I saw and examined the patient.
The Openstack Developer's note was reviewed and I agree with the note.
Comment: Seen and examined with cardiac physician shipping assistant. Tim is a 69 year old male with PMH of uncontrolled HTN who who lives in [facility] and does not see physicians on a regular basis. [facility]
for evaluation of confusion and memory loss over the past few weeks at the behest of his son who lives in this area. At urgent care, he was noted to be severely hypertensive and there was concern for possible UTI. Given uncontrolled BP, he was
referred to the ER for further evaluation. In ER, BP remained elevated and CT of head revealed subacute stroke. He was admitted for further workup and evaluation. Brain MRI confirmed multiple acute/subacute infarcts in the R BARREL PLATER/MCA territory, felt
to be embolic in nature. Given concern for embolic stroke, cardiology consulted. No arrhythmias have been noted on telemetry and he denies any palpitations or heart racing.
General: No acute distress, AAOX3
Neck: Negative JVD
Heart: Regular, +S1S2 No murmur
Lungs: CTA b/l, negative wheezes/rales/rhonchi
Abd: Positive BS, NT/ND, neg rebound/rigidity/guarding
Ext: Negative cyanosis/clubbing/edema
Plan:
Brain imaing with multiple acute/subacute infarcts of the Right frontoparietal region, concern for embolic CVA
-ECG reviewed. SR/normal with HR 62 bpm.
-No arrhythmias noted on telemetry.
-2D echocardiogram with normal biventricular size and systolic function and no hemodynamically significant valve pathology but with mild to moderate left ventricular hypertrophy.
-LIAM discussed with patient; no contraindications planned for 11/05/2024; n.p.o. after midnight
-Pending results of LIAM, will plan to follow with implant of ILR for long-term arrhythmia monitoring
-Neurology consulted
-Continue new aspirin and plavix for 21 days per neurology.
-LDL 112, continue new Lipitor 40mg daily. Goal LDL less than 70 mg/dL if not ideally 55 to 60 mg/dL
-New diagnosis type 2 diabetes mellitus HgbA1c 10.0%.
-Discussed the importance of normoglycemia.
-Would benefit from diabetic education during hospitalization
-Defer initial treatment initiation to hospitalist
-Hypertension who presented with hypertensive emergency
-BP improving w/ addition and uptitration of enalapril.
-Goal normotension
Abnormal TFTs
-TSH elevated at 5.12 with normal Free T4 of 1.26.
-Will need outpatient follow-up.
Suspect sleep apnea
-Discussed and recommended outpatient sleep study
-Admits to drinking multiple glasses of wine per day.
-Advised avoidance of alcohol
-Despite living in [place], would like to follow up with [facility] at discharge. Will arrange follow up.
Original Note:
Consultation
Consultation Request
Date/Time Consultation Requested: 11/04/2024
Date/Time Consultation Performed: 11/04/2024
Requesting Provider: Dr. Enriquez
Performing Provider: Mikaela Momin PA-C for Dr. Garcia
Reason for Consultation: CVA
Medical History
-
History of Present Illness:
HPI: Tim is a 69 year old male with PMH of uncontrolled HTN who [facility] for evaluation of confusion and memory loss. Symptoms had been occurring for the past few weeks. As symptoms were not improving, his son took him to an urgent care
for evaluation. At urgent care, he was noted to be severely hypertensive and there was concern for possible UTI. Given uncontrolled BP, he was referred to the ER for further evaluation. In ER, BP remained elevated and CT of head revealed subacute
stroke. He was admitted for further workup and evaluation. Brain MRI confirmed multiple acute/subacute infarcts in the R BARREL PLATER/MCA territory, felt to be embolic in nature. Given concern for embolic stroke, cardiology consulted. No arrhythmias have
been noted on telemetry and he denies any palpitations or heart racing.
PMH:
HTN
Past Medical History
Past Medical History: Other (IN HPI)
Past Surgical History: None
Social History
Tobacco: Former Smoker
Alcohol: Daily
Drug: Marijuana
Living: Alone
Employment: Retired
Family History
Family History: Reviewed & Not Pertinent
Allergies / Home Medications
Allergy/AdvReac Type Severity Reaction Status Date / Time
No Known Allergies Allergy Verified 11/01/24 19:40
�Medication �Instructions �Recorded �Confirmed �Type
acetaminophen 500 mg tablet 1,500 mg PO DAILYPRN PRN mild 11/02/24 11/02/24 History
pain/migraine
Review of Systems
-
History Source: Patient
All other systems: Negative unless noted
Physical Exam
Vital Signs
Temp Pulse Resp BP Pulse Ox
98.2 F 76 16 138/74 96
11/04/24 07:32 11/04/24 07:32 11/04/24 07:32 11/04/24 07:32 11/04/24 08:00
Lab Results
11/04/24 04:37
11/04/24 04:37
Troponin I < 0.012 ng/ml 11/01/24 19:52
Physical Exam
General: Well Developed, Well Nourished and No Apparent Distress
HEENT: Normocephalic, Anicteric and Moist Mucous Membranes
Respiratory: Clear and Non Labored Respirations
Cardiac: S1/S2 and Regular Rhythm
Musculoskeletal: No Clubbing, No Cyanosis and No Edema
Skin: Warm and Dry
Neuro: AO x 3
Psych: Calm
Impression / Plan
-
PCP: None
Psychiatric Therapist: None prior to admission
Impression:
Presented with confusion, memory loss
Acute/subacute CVA
HTN
HLD
DM2, newly diagnosed w/ A1c 10%
Echo 11/04/2024: Study pending
Plan:
-Presented with memory loss/confusion for the past few weeks. Found to have multiple acute/subacute infarcts of the R frontoparietal region.
-Given concern for embolic CVA, cardiology consulted.
-ECG reviewed. SR with HR 62 bpm. No arrhythmias noted on telemetry. Will continue monitoring as OP and will arrange for 14 day rhythm star monitor at discharge.
-Check echo. May consider LIAM pending results.
-Continue aspirin and plavix for 21 days per neurology.
-LDL 112, continue lipitor 40mg daily
-Continue DM control per primary service. HgbA1c 10.0%.
-BP improving w/ addition and uptitration of enalapril.
-TSH elevated at 5.12 with normal Free T4 of 1.26.
-K 4.1.
-Admits to drinking multiple glasses of wine per day. Will need to decrease alcohol intake.
-Despite living in [place], would like to follow up with [facility] at discharge. Will arrange follow up.
HPI: Tim is a 69 year old male with PMH of uncontrolled HTN who [facility] evaluation of confusion and memory loss. Symptoms had been occurring for the past few weeks. As symptoms were not improving, his son took him to an urgent care
for evaluation. At urgent care, he was noted to be severely hypertensive and there was concern for possible UTI. Given uncontrolled BP, he was referred to the ER for further evaluation. In ER, BP remained elevated and CT of head revealed subacute
stroke. He was admitted for further workup and evaluation. Brain MRI confirmed multiple acute/subacute infarcts in the R BARREL PLATER/MCA territory, felt to be embolic in nature. Given concern for embolic stroke, cardiology consulted. No arrhythmias have
been noted on telemetry and he denies any palpitations or heart racing.
Data Reviewed
-
EKG: Tracing Personally Visualized and interpreted
CT Scan: Report Reviewed by me
MRI: Report Reviewed by me
Labs: Labs Reviewed by me
Old Records: Reviewed
--- NOTE | 2024-11-04 11:32 | W.PN.HOSP.TC ---
Addendum entered and electronically signed by Sandie Hobbs MD 11/04/24 12:59:
updated son on the phone
Original Note:
Today's Communication/Plan
-
see A/P
Assessment / Plan
Assessment / Plan
A/P:
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
MRA brain unrevealing
MRA neck also unrevealing
Cont tele
Check TTE, and LIMA if TTE unremarkable per neuro
Cont DAPT x 21 days, then asa alone
LDL 112, started Lipitor 40 mg
A1C 10%, started Lantus 5 units HS
PT/OT cleared for HH
# Essential HTN
Enalapril was added and up titrated resulting in hypotension
Cont reduced dose enalapril at 10mg with holding parameter
# DM type 2.
A1C 10%
Started Lantus 5 units HS
DM education
# ETOH - drinks 4 glasses of wine 4 times per week, liquor occasionally.
Has stopped without issues in the past.
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
LFT WNL
no indication for acute withdrawal protocol but will monitor on telemetry
DVT PPX - HSQ
Code status - Full code
Anticipated Discharge: 24 - 48 hours
Subjective/Interval History
-
Date of Service: November 04, 2024
Objective Data
-
Labs:
Laboratory Results
11/04/24
04:37
WBC 5.2
Hgb 15.7
Hct 43.5
Plt Count 166
Sodium 139
Potassium 4.1
Chloride 101
Carbon Dioxide 25
BUN 19
Creatinine 0.9
Glucose 164 H
Calcium 9.4
Vital Signs:
Vital Signs
Temp Pulse Resp BP Pulse Ox
36.8 C 90 20 96/67 92
11/04/24 11:13 11/04/24 11:13 11/04/24 11:13 11/04/24 11:13 11/04/24 11:13
I&O
11/03/24 11/04/24 11/05/24
06:59 06:59 06:59
Intake Total 480 / 480 1800 / 1800
Output Total 750 / 750 1450 / 1450
Balance -270 / -270 350 / 350
Review of Systems
-
All other systems: Reviewed and negative
Physical Exam
-
General: Well Developed, Well Nourished, No Apparent Distress, Comfortable and Conversant; Negative Respiratory Distress
HEENT: Normocephalic, Atraumatic, Nose Appears Normal and Ears Appear Normal; Negative Oxygen
Respiratory: Clear to Auscultation and Non Labored Respirations; Negative Accessory Resp Muscle Use
Cardiac: Regular Rhythm and S1/S2
GI: Soft, Nontender, Nondistended and Normal Bowel Sounds
Skin: Warm and Dry
Neuro: Awake, Alert and Oriented
Psych: Calm and Intact Judgement/Insight (somewhat)
Data Reviewed
-
MRI: Report Reviewed by me
Labs: Labs Reviewed by me
[2024-11-04 12:37] LABS: Glucose - Point of Care 237 mg/dl (70-99)
[2024-11-04] MEDS: NOVOLOG FLEXPEN-LOW RESISTANCE 2 UNITS SC (12:38)
--- NOTE | 2024-11-04 16:06 | PTCARENOTE ---
I met with Tim to review diabetes management. He is newly diagnosed with diabetes and he will be discharged home with his son who had type 2 diabetes. I reviewed how to monitor the blood glucose with the Contour Next Ez glucometer.
(Prescriptions for Contour next test strips and microlet lancets : check up to 5 times daily will be needed to be sent to his pharmacy prior to discharge.) Tim was able to demonstrate a fingerstick and I reviewed target glucose ranges and a
schedule to monitor his glucose; fasting, pre-meal, bedtime and as needed for hyper or hypoglycemia. I instructed Tim on the the differences between rapid and long acting insulin. He was able to return demonstrate a sample injection with the
insulin pen. His schedule for insulin dosing pre-meal and at bedtime will be discussed with him directly prior to discharge. I reviewed hypoglycemia and provided written instructions on recognition and treatment. Tim was able to verbalize
treatment for a low blood sugar and I reinforced importance of wearing medical identification. Tim will practice giving his injections with the nurse supervision and will follow up with the office if interested in attending the DSME program.
--- NOTE | 2024-11-04 16:20 | CM ---
Chart reviewed
Planned for LIAM tomorrow
PT recs - HH
LM with son on VM
Plan anticipate home with HH when medically stable
[2024-11-04 17:12] LABS: Glucose - Point of Care 189 mg/dl (70-99)
[2024-11-04] MEDS: LIPITOR 40 MG PO (17:13)
[2024-11-04 19:41] LABS: Hepatitis C Antibody Negative (Negative)
[2024-11-04 21:25] LABS: Glucose - Point of Care 200 mg/dl (70-99)
[2024-11-04] MEDS: LANTUS 0.05 UNITS SC (21:25)
[2024-11-05] VITALS (9 sets, daily range): BP systolic 120–159; BP diastolic 61–91
[2024-11-05] LABS: Glucose - Point of Care 180 mg/dl (70-99)
[2024-11-05 05:49] LABS: Glucose - Point of Care 161 mg/dl (70-99)
--- NOTE | 2024-11-05 07:45 | W.PN.NEURO.1 ---
Today's Communication / Plan
-
Continue DAPT for 21 days then continue aspirin 81 mg once a day indefinitely
Continue thiamine
Newly initiated atorvastatin 40 mg QHS to be continued
Neuro Assessment/Plan
Assessment
I. Subacute right /WEDDING DECORATOR MCA territory infarct. Likely etiology�embolic
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
III. History of recurrent Jones's palsy
IV. Cannabis, EtOH addiction
Plan
Continue DAPT for 21 days then continue aspirin 81 mg once a day indefinitely
Continue thiamine
Newly initiated atorvastatin 40 mg QHS to be continued
Subjective/Objective
Subjective Data
Date of Service: November 05, 2024
Objective Data
Vital Signs
Temp Pulse Resp BP Pulse Ox
36.4 C 69 16 136/70 98
11/05/24 03:50 11/05/24 03:50 11/05/24 03:50 11/05/24 03:50 11/05/24 03:50
Lab Results
11/04/24 04:37
11/04/24 04:37
Sodium 139 mmol/L (135-145) 11/04/24 04:37
Potassium 4.1 mmol/L (3.5-5.1) 11/04/24 04:37
BUN 19 mg/dl (9-20) 11/04/24 04:37
Glucose 164 mg/dl (70-99) H 11/04/24 04:37
Calcium 9.4 mg/dl (8.4-10.2) 11/04/24 04:37
LDL Cholesterol, Calc 112 mg/dl 11/02/24 08:05
Vitamin B12 Cancelled 11/02/24 15:52
Ur Buprenorphine Cancelled 11/02/24 10:54
Patient Allergies
No Known Allergies Allergy (Verified 11/01/24 19:40)
Data Reviewed
-
MRI Head: Report Reviewed
Echocardiogram: Report Reviewed
Labs: Report Reviewed
Reviewed with: Physician
Old Records: Summarized
Past History
Past History
ED Past Medical History: CVA (November 2024), Hypercholesterolemia and NIDDM
ED Past Surgical History: None
Patient has exhibited threatening behavior?: No
Social History
Tobacco: Vaping
Alcohol: Daily
Drug: Marijuana
Living: alone
Family History
Family History: Diabetes and Hypertension
[2024-11-05] MEDS: LOW STRENGTH ASPIRIN 81 MG PO (08:39)
[2024-11-05] MEDS: HEPARIN 5000 UNITS SC ×2 (08:40→20:21)
[2024-11-05] MEDS: PLAVIX 75 MG PO (08:40)
[2024-11-05] MEDS: NOVOLOG FLEXPEN-LOW RESISTANCE 1 UNITS SC (08:44)
[2024-11-05 08:45] LABS: Glucose - Point of Care 195 mg/dl (70-99)
--- NOTE | 2024-11-05 11:11 | W.PN.HOSP.TC ---
Today's Communication/Plan
-
see A/P
Assessment / Plan
Assessment / Plan
A/P:
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
MRI brain showed Multiple strokes in RIGHT CEREBRAL HEMISPHERE (right frontal lobe, right temporal lobe, right parietal lobe, and right occipital lobe). Intraparenchymal microhemorrhage within multiple lesions.
MRA brain unrevealing. MRA neck also unrevealing
Cont tele
TTE unrevealing: EF 60-65%. Normal diastolic function. No cardiac embolic source seen.
LIAM 2/4 negative for clot,
also s/p implantation of ILR for long-term arrhythmia monitoring
Cont DAPT x 21 days, then asa alone
LDL 112, started Lipitor 40 mg
A1C 10%, started Lantus 5 units HS
PT/OT cleared for HH
# Essential HTN
Cont enalapril 10mg with holding parameter
# DM type 2.
A1C 10%
Started Lantus 5 units HS
DM education
# ETOH - drinks 4 glasses of wine 4 times per week, liquor occasionally.
Has stopped without issues in the past.
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
LFT WNL
no indication for acute withdrawal protocol but will monitor on telemetry
DVT PPX - HSQ
Code status - Full code
Dispo: HH
DW son on the phone
Anticipated Discharge: Within 24 hours
Subjective/Interval History
-
Date of Service: November 05, 2024
Objective Data
-
Vital Signs:
Vital Signs
Temp Pulse Resp BP Pulse Ox
36.6 C 66 16 120/65 98
11/05/24 07:07 11/05/24 07:07 11/05/24 07:07 11/05/24 07:07 11/05/24 07:07
I&O
11/04/24 11/05/24 11/06/24
06:59 06:59 06:59
Intake Total 1800 / 1800 1919
Output Total 1450 / 145
Balance 350 / 350 1919
Review of Systems
-
All other systems: Reviewed and negative
Physical Exam
-
General: Well Developed, Well Nourished, No Apparent Distress, Comfortable and Conversant; Negative Respiratory Distress
HEENT: Normocephalic, Atraumatic, Nose Appears Normal and Ears Appear Normal; Negative Oxygen
Respiratory: Clear to Auscultation and Non Labored Respirations; Negative Accessory Resp Muscle Use
Cardiac: Regular Rhythm and S1/S2
GI: Soft, Nontender, Nondistended and Normal Bowel Sounds
Skin: Warm and Dry
Neuro: Awake, Alert and Oriented
Psych: Calm and Intact Judgement/Insight (somewhat)
Data Reviewed
-
MRI: Report Reviewed by me
Labs: Labs Reviewed by me
[2024-11-05] MEDS: VASOTEC 10 MG PO (13:11)
[2024-11-05] MEDS: NOVOLOG FLEXPEN-LOW RESISTANCE 2 UNITS SC ×2 (13:14→18:04)
[2024-11-05 13:16] LABS: Glucose - Point of Care 206 mg/dl (70-99)
--- NOTE | 2024-11-05 13:18 | ITS.CL.IMPLP ---
Second Chef - Implant Loop
Implant Loop
Procedure Report:
ILR implant
Date of Procedure: November 05, 2024
Patient : 1955
Procedure: Insertable Loop Recorder Implant.
Indication: Cryptogenic neurologic event
Implant: Reveal Linq2: [employer]; Model# LN Q22; Serial# [id number]
Technique: The patient was prepped and draped in the usual fashion.��Local anesthetic was applied to the left��prepectoral subcutaneous tissue. A subcutaneous pocket was created with blunt dissection. Hemostasis was excellent. The device was
placed in the pocket. The skin was closed with steri-strips. The estimated blood��loss was minimal. There were no complications.
Final Programming: FVT 231 30/40 beats
����������������������������������VT 176 16 beats
����������������������������������Asystole 3 sec
����������������������������������Rudolph 30 bpm for 4 beats
����������������������������������AF On AF only.
Conclusion: Uncomplicated insertable loop implant.
Recommendation: Routine Reveal care.
cc: Dr. Lilo Garcia
--- NOTE | 2024-11-05 13:21 | PTCARENOTE ---
Received patient from test lab technician around 1250 via stretcher in stable condition. Gauze dressing to chest CDI. Will continue to monitor.
--- NOTE | 2024-11-05 13:37 | W.PN.CARDCBS ---
Addendum entered and electronically signed by Yasmany He MD 11/05/24 14:30:
I saw and examined the patient.
The Electric Meter Tester Helper's note was reviewed and I agree with the note.
Comment:
GEN: No distress, awake, Ox3
HEENT: supple, anicteric, mmm
LUNGS: CTA, no wheezes/rales
CV: Reg, S1/S2, 1/6 syst LSB, no gallop
ABD: soft, BS+, NT/ND
EXT: No edema
NEURO: Gross non-focal
SKIN: No rash
Plan:
LIAM with no cardiac source of emboli. Linq placed
Okay for discharge
Cont ASA/Plavix/Atorvastatin/Enalapril
Decrease alcohol.
Original Note:
Today's Communication / Plan
-
Linq place today and will be followed by [facility] as an outpatient, outpatient f/u arranged
Impression / Plan
-
PCP: None
Apparatus Lineman: None prior to admission
Impression:
Presented with confusion, memory loss
Acute/subacute CVA
HTN
HLD
DM2, newly diagnosed w/ A1c 10%
s/p Linq implant 11/05/24
Echo 11/04/2024: EF 60 to 65%, mild to moderate LVH, normal diastolic function, no cardiac embolic source seen
LIAM 11/05/2024: Report pending
Plan:
-Patient had LIAM 11/05/24 and presumably no evidence of thrombus as patient then went on to have Linq implant as well.
-Patient lives in [place], but his son lives in [place] and plan is for follow up in [facility] office. Patient will be living with his son for a bit before returning home.
-Patient with multiple acute/subacute infarcts of the R frontoparietal region on MRI brain this admission. No evidence of atrial arrhythmia. LIAM and Linq as above.
-Neurology is recommending aspirin 81 mg daily and Plavix for 21 days and then aspirin daily thereafter.
-LDL 112, new to atorvastatin 40mg daily this admission
-HTN on admission and new to enalapril 10 mg daily this admission
-Continue DM control per primary service. HgbA1c 10.0%.
-Admits to drinking multiple glasses of wine per day. Will need to decrease alcohol intake.
-[facility] follow up arranged
HPI: Tim is a 69 year old male with PMH of uncontrolled HTN who presented to [facility] for evaluation of confusion and memory loss. Symptoms had been occurring for the past few weeks. As symptoms were not improving, his son took him to an urgent care
for evaluation. At urgent care, he was noted to be severely hypertensive and there was concern for possible UTI. Given uncontrolled BP, he was referred to the ER for further evaluation. In ER, BP remained elevated and CT of head revealed subacute
stroke. He was admitted for further workup and evaluation. Brain MRI confirmed multiple acute/subacute infarcts in the R CERTIFIED DIABETES EDUCATOR/MCA territory, felt to be embolic in nature. Given concern for embolic stroke, cardiology consulted. No arrhythmias have
been noted on telemetry and he denies any palpitations or heart racing.
Progress Note - Apparatus Lineman
Subjective
Date of Service: November 05, 2024
No palpitations
Objective
Labs:
11/04/24 04:37
11/04/24 04:37
Labs
Hgb 15.7 g/dL (13.0-18.0) 11/04/24 04:37
Hct 43.5 % (39.0-52.0) 11/04/24 04:37
Plt Count 166 10^3/uL (130-400) 11/04/24 04:37
Sodium 139 mmol/L (135-145) 11/04/24 04:37
Potassium 4.1 mmol/L (3.5-5.1) 11/04/24 04:37
BUN 19 mg/dl (9-20) 11/04/24 04:37
Creatinine 0.9 mg/dL (0.7-1.3) 11/04/24 04:37
Glucose 164 mg/dl (70-99) H 11/04/24 04:37
Vital Signs and I&O:
Vital Signs
Temp Pulse Resp BP Pulse Ox
97.3 F 72 16 138/78 99
11/05/24 13:20 11/05/24 13:20 11/05/24 13:20 11/05/24 13:20 11/05/24 13:20
Vital Signs
Temp Pulse Resp BP Pulse Ox
97.3 F 72 16 138/78 99
11/05/24 13:20 11/05/24 13:20 11/05/24 13:20 11/05/24 13:20 11/05/24 13:20
Intake & Output
11/03/24 11/04/24 11/05/24 11/06/24
06:59 06:59 06:59 06:59
Intake Total 480 / 480 1800 / 1800 1919
Output Total 750 / 750 1450 / 1450
Balance -270 / -270 350 / 350 1919
Physical Exam
Physical Exam
General: AAOX3
HEENT: MMM
Heart: Reg
Lungs: RA. No audible wheeze
Abd: ND
Ext: No edema B/L
--- NOTE | 2024-11-05 15:43 | CM ---
Patient seen at bedside. Patient states that he does not want VN at discharge at this time. Patient states that his son indicated that he would take patient home and that his son was a diabetic also and could help him with the insulin. CM provided
IMM for patient to review. CM will contrinue to follow for discharge planning needs.
Plan; home with no needs vs home with VN
[2024-11-05 17:20] LABS: Angiotensin-1-converting Enzym <10 U/L (16-85)
[2024-11-05 17:50] LABS: Glucose - Point of Care 242 mg/dl (70-99)
[2024-11-05] MEDS: LIPITOR 40 MG PO (18:05)
[2024-11-05] MEDS: LANTUS 0.05 UNITS SC (21:52)
[2024-11-05 21:53] LABS: Glucose - Point of Care 203 mg/dl (70-99)
[2024-11-05 23:01] LABS: Vitamin B1, Whole Blood 100 nmol/L (70-180)
[2024-11-05 23:12] LABS: Albumin 4.38 g/dL (3.75-5.01); Alpha 1 Globulin 0.28 g/dL (0.19-0.46); Alpha 2 Globulin 0.68 g/dL (0.48-1.05); SPEP IFE Reflex Not Done; Total Protein-Electrophoresis 7.3 g/dL (6.3-8.2)
[2024-11-06 03:30] VITALS: BP 157/92
[2024-11-06 07:00] VITALS: BP 130/79
[2024-11-06 08:07] LABS: Glucose - Point of Care 207 mg/dl (70-99)
[2024-11-06] MEDS: NOVOLOG FLEXPEN-LOW RESISTANCE 2 UNITS SC (09:15)
[2024-11-06] MEDS: HEPARIN 5000 UNITS SC (09:15)
[2024-11-06] MEDS: PLAVIX 75 MG PO (09:16)
[2024-11-06] MEDS: VASOTEC 10 MG PO (09:16)
[2024-11-06] MEDS: LOW STRENGTH ASPIRIN 81 MG PO (09:16)
--- NOTE | 2024-11-06 10:38 | W.PN.HOSP.TC ---
Addendum entered and electronically signed by Sandie Hobbs MD 11/07/24 13:01:
# cytotoxic edema is a valid diagnosis
# Hypertensive Emergency with stroke
Addendum entered and electronically signed by Sandie Hobbs MD 11/06/24 14:57:
total DC time 37 min
Original Note:
Today's Communication/Plan
-
see A/P
DC today
Assessment / Plan
Assessment / Plan
A/P:
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
MRI brain showed Multiple strokes in RIGHT CEREBRAL HEMISPHERE (right frontal lobe, right temporal lobe, right parietal lobe, and right occipital lobe). Intraparenchymal microhemorrhage within multiple lesions.
MRA brain unrevealing. MRA neck also unrevealing
Cont tele
TTE unrevealing: EF 60-65%. Normal diastolic function. No cardiac embolic source seen.
LIAM 2/4 negative for clot
also s/p implantation of ILR for long-term arrhythmia monitoring
Cont DAPT x 21 days, then asa alone
LDL 112, started Lipitor 40 mg
A1C 10%, started Lantus 5 units HS
PT/OT cleared for HH
# Essential HTN
Cont enalapril 10mg with holding parameter
# DM type 2.
A1C 10%
Started Lantus 5 units HS
DM education
# ETOH - drinks 4 glasses of wine 4 times per week, liquor occasionally.
Has stopped without issues in the past.
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
LFT WNL
no indication for acute withdrawal protocol but will monitor on telemetry
DVT PPX - HSQ
Code status - Full code
Dispo: HH
DW son on the phone
Anticipated Discharge: Today
Subjective/Interval History
-
Date of Service: November 06, 2024
Objective Data
-
Vital Signs:
Vital Signs
Temp Pulse Resp BP Pulse Ox
36.3 C 76 17 130/79 98
11/06/24 07:00 11/06/24 07:00 11/06/24 07:00 11/06/24 07:00 11/06/24 07:00
I&O
11/05/24 11/06/24 11/07/24
06:59 06:59 06:59
Intake Total 1919
Balance 1919
Review of Systems
-
All other systems: Reviewed and negative
Physical Exam
-
General: Well Developed, Well Nourished, No Apparent Distress, Comfortable and Conversant; Negative Respiratory Distress
HEENT: Normocephalic, Atraumatic, Nose Appears Normal and Ears Appear Normal; Negative Oxygen
Respiratory: Clear to Auscultation and Non Labored Respirations; Negative Accessory Resp Muscle Use
Cardiac: Regular Rhythm and S1/S2
GI: Soft, Nontender, Nondistended and Normal Bowel Sounds
Skin: Warm and Dry
Neuro: Awake, Alert and Oriented
Psych: Calm and Intact Judgement/Insight (somewhat)
Data Reviewed
-
MRI: Report Reviewed by me
Labs: Labs Reviewed by me
--- NOTE | 2024-11-06 11:06 | CM ---
CM reviewed chart, patient seen bedside, reports no needs to CM at this time. IMM provided to patient yesterday. Patients son to transport home. CM will continue to follow for all discharge planning needs.
Plan; home no needs.
[2024-11-06 11:32] VITALS: BP 147/85
[2024-11-06] MEDS: FLUAD (65 yr+) 2024-2025 FORMULA 0.5 ML IM (11:33)
--- NOTE | 2024-11-06 14:42 | W.DCSUMMARY ---
Discharge Summary
Discharge Data
Date of Admission: 11/04/24
Date of Discharge: 11/06/24
-
Pending Results: No
Hospital Course
Principal Diagnosis:
Multiple right cerebral hemisphere stroke with microhemorrhage, felt likely embolic in nature
Now insulin-dependent diabetes, started Lantus 5 unit at bedtime this admission
Chronic Diagnoses:�
Essential hypertension, continue enalapril 10 mg
Alcohol drinking, 4 glasses of wine 4 times per week and liquor occasionally.
Consultations:�
Neurology
Cardiology
Procedures:�
LIAM without evidence of intracardiac thrombus
Clinical course:�
This is a 69 year old male with subacute memory loss, confusion, and uncontrolled hypertension.
Problem 1:
Multiple right cerebral hemisphere stroke with microhemorrhage, felt likely embolic in nature.
His MRI brain showed multiple strokes in RIGHT CEREBRAL HEMISPHERE (right frontal lobe, right temporal lobe, right parietal lobe, and right occipital lobe). Intraparenchymal microhemorrhage within multiple lesions.
His MRA brain and neck were unrevealing.
His TTE was unrevealing: EF 60-65%. Normal diastolic function. No cardiac embolic source seen.
He subsequently underwent LIAM on 11/05 which was also negative for clot.
He had an ILR placed by cardiology this admission for long-term arrhythmia monitoring.
He has been informed to continue dual antiplatelet therapy with aspirin and Plavix for 21 days total, then aspirin alone.
His LDL was high at 112, hence Lipitor 40 mg was started which he can continue going forward.
His A1C was high at 10%, hence Lantus 5 units HS was started.
He was cleared for discharge with home health per PT OT jennifer.
Problem 2:
DM type 2, [id number].
A1C at 10%, Lantus 5 units HS was started this admission.
As for the rest of his medical problems, they were stable during his hospital stay.
Discharge Plan
-
Patient Disposition: Home with Home Care
Discharge Diagnosis/Procedures: Multiple right cerebral hemisphere stroke with microhemorrhage (MRI brain showed Multiple strokes in RIGHT CEREBRAL HEMISPHERE- right frontal lobe, right temporal lobe, right parietal lobe, and right occipital lobe);
Essential hypertension;
Now insulin dependent diabetes (A1C 10%, started Lantus 5 units at night);
status post LINQ placement for arrhythmia detection this admission
Condition: Fair
Diet: As tolerated, Low Fat, Low Cholesterol and Low Sodium
Activity: As tolerated
Bathing Restrictions: After dressing removed
Stand Alone Forms: DC Inst - Implanted Device
Referrals:
[facility] [Provider Group] - 11/19/24 2:20 pm (Incision check appointment)
UNKNOWN - PT DOES,NOT KNOW [Family Provider] - in less than 1 week
Additional Discharge Medication Instructions: Continue ASA and Plavix for 15 more days, then ASA after that going forward
Continue insulin Lantus 5 units at night
Continue Lipitor 40 mg
Prescriptions:
New
enalapril maleate 10 mg Tablet
10 mg PO DAILY Qty: 30 11RF
atorvastatin 40 mg Tablet
40 mg PO QPM Qty: 30 0RF
aspirin 81 mg Tablet,Chewable
81 mg PO DAILY Qty: 30 0RF
clopidogrel 75 mg Tablet
75 mg PO DAILY 15 Days Qty: 15 0RF
insulin glargine [Basaglar KwikPen U-100 Insulin] 100 unit/mL (3 mL) Insulin Pen
5 unit SC HS Qty: 5 0RF
(DME) pen needle, diabetic [BD Ultra-Fine Rosalinda Pen Needle] 32 gauge x 5/32' Needle
Qty: 200 0RF
Rx Instructions:
As Directed
Discontinued
acetaminophen 500 mg Tablet
1,500 mg PO DAILYPRN PRN (Reason: mild pain/migraine)
Discharge Orders:
Discharge Patient (As Directed); Ordered 11/06/24
Ordered By: Sandie Hobbs
Discharge Date and Time
Discharge Date/Time: 11/06/24 12:03
Print Language: KINYARWANDA
--- NOTE | 2024-11-07 09:08 | PN.CDI ---
CDI
- -
CDI:
Physician Documentation Request
Admit Date: 11/04/24 12:58
Dear Doctor Faby,
The diagnosis of cytotoxic edema was included in the signed MRI brain 11/03.
'Multiple (approximately 7) cortical gonzalez matter and subcortical white matter lesions in the RIGHT CEREBRAL HEMISPHERE (right frontal lobe, right temporal lobe, right parietal lobe, and right occipital lobe) containing cytotoxic edema and gyriform
enhancement'
Please indicate in your progress notes if you are in agreement that the above diagnosis is valid for this patient:
____ - cytotoxic edema is a valid diagnosis (Please include it in your progress notes)
____ - cytotoxic edema is not a valid diagnosis for this patient
____ - Other
Use of terms such as suspected, likely, concern for, or probable are acceptable for a diagnosis that is being evaluated, monitored or treated as if it exists and can be coded in the inpatient setting, when documented at the time of discharge.
Thank you,
Dariela Rod RN, BSN
CDI Specialist
tiger text
Please use your independent medical judgment in providing your response.
--- NOTE | 2024-11-07 09:12 | PN.CDI ---
CDI
- -
CDI:
Physician Documentation Request
Admit Date: 11/04/24 12:58
Dear Doctor Faby,
Patient admitted for evaluation of right cerebral hemisphere stroke. History of uncontrolled hypertension.
Neuro consultation notes 'Hypertensive emergency'
Cardiology 'Hypertension who presented with hypertensive emergency'
Hospitalist 'Essential HTN'
Some initial blood pressure readings :
Selected Entries
11/01/24
19:32 11/02/24
03:47 11/02/24
05:00
Blood pressure 198/95 168/87 191/101
11/02/24
05:21 11/02/24
06:52
Blood pressure 181/91 198/102
Please clarify the type of hypertension the patient presented with:
Essential primary hypertension
Hypertensive Emergency - B/P is severely elevated (systolic > or = to 180 or diastolic > or = to 110) but can occur at lower levels especially in patients who did not previously have high B/P. There is usually associated organ damage. Symptoms may
include: memory loss, LOC, CVA, DE, angina, renal failure, pulmonary edema. Generally requires more aggressive treatment and a hospitalization.
Other (please specify)
Use of terms such as suspected, likely, concern for, or probable (associated with a specific diagnosis that is being evaluated, monitored, or treated as if it exists) are acceptable and can be coded in the inpatient setting, when documented at the
time of discharge.
Thank you,
Dariela Rod RN, BSN
CDI Specialist
tiger text
Please use your independent medical judgment in providing your response.
== END 2024-11-06 12:03 | disposition home or self-care (01) | DRG 40 ==
LOC: 2 SOUTH 12:58
PROVIDERS: Internal Medicine; Internal Medicine Cardiovascular Disease; Physician Assistant; ADMITTING PHYSICIAN Internal Medicine; ATTENDING PHYSICIAN Internal Medicine; CONSULT PHYSICIAN Internal Medicine Cardiovascular Disease; CONSULT PHYSICIAN Psychiatry & Neurology Neurology; EMERGENCY PHYSICIAN Emergency Medicine
PROC: 3E02340 Introduction of Influenza Vaccine into Muscle, Percutaneous Approach (ICD-10-PCS; 2024-11-03)
PROC: B24BZZ4 Ultrasonography of Heart with Aorta, Transesophageal (ICD-10-PCS; 2024-11-05)
PROC: 0JH602Z Insertion of Monitoring Device into Chest Subcutaneous Tissue and Fascia, Open Approach (ICD-10-PCS; 2024-11-05)
DX: I63.49 Cerebral infarction due to embolism of other cerebral artery (principal); G93.6 Cerebral edema; I61.8 Other nontraumatic intracerebral hemorrhage; I16.1 Hypertensive emergency; I10 Essential (primary) hypertension; E11.40 Type 2 diabetes mellitus with diabetic neuropathy, unspecified; E11.65 Type 2 diabetes mellitus with hyperglycemia; Z87.891 Personal history of nicotine dependence; F10.20 Alcohol dependence, uncomplicated; F12.90 Cannabis use, unspecified, uncomplicated; G43.909 Migraine, unspecified, not intractable, without status migrainosus; E78.5 Hyperlipidemia, unspecified; Z23 Encounter for immunization
CPT/HCPCS: 70450; 70496; 70498; 70544; 70548; 70551; 70553; 80048; 80053; 80061; 80076; 81003; 81015; 82077; 82164; 82607; 82746; 82962; 83036; 84155; 84165; 84425; 84439; 84443; 84484; 85025; 85027; 85652; 86803; 90662; 93005; 93306; 93312; 93320; 93325; 97116; 97161; 97166; 97530; 99285; A9585; C1764; G0008; Q9967